=== PATIENT | female | born 1965 | race Caucasian/White ===

== ENCOUNTER 2017-08-29 23:42 | Emergency (ER) | payer SELFPAY ==
[~2017-08-29] VITALS: Ht 167.6 cm; Wt 85.0 kg
[2017-08-29 23:47] VITALS: BP 202/95; PULSE 79; RESP 20; TEMP 97.8; O2SAT 100
[2017-08-30] MEDS ORDERED: METO1TAB42 PO (00:12)
[2017-08-30] MEDS ORDERED: LISI40TA PO (00:12)
[2017-08-30] MEDS ORDERED: HYDR12.56 PO (00:12)
[2017-08-30] MEDS ORDERED: ATOR10TA15 PO (00:12)
--- NOTE | 2017-08-30 00:54 | PD ---
HPI Chief Complaint: Injury Time Seen by Provider: 00:50 Travel History International Travel<30 days: No Contact w/Intl Traveler<30days: No Traveled to known affect area: No History of Present Illness HPI The patient is a 51-year-old female that 2 weeks ago hurt her right fourth and fifth toes when she stubbed them on a stove. The toe, particularly the fifth toe remains painful and blue. The fourth toe appears to be doing much better. She came in tonight because of the collar and persistent pain in that fifth toe. The patient smokes one half packs a day. PFSH Past Medical History Cardiovascular Problems: Yes (SVT) High Cholesterol: Yes Patient Takes Glucophage: No Hypertension: Yes ?: Not LMP: 08/10/2017 Past Surgical History Appendectomy: Yes Social History Alcohol Use: Yes (Occasional) Tobacco Use: Yes (1.5 ppd) Substance Use: No Allergies-Medications (Allergen,Severity, Reaction): Coded Allergies: acetaminophen (Verified Allergy, Unknown, Respiratory, 08/30/17) hydrocodone (Verified Allergy, Unknown, Respiratory, 08/30/17) levofloxacin (Verified Allergy, Unknown, SVT-Cardiac symptoms, 08/30/17) moxifloxacin (Verified Allergy, Unknown, SVT-Cardiac symptoms, 08/30/17) Reported Meds & Prescriptions Reported Meds & Active Scripts Active Reported Hydrochlorothiazide 12.5 Mg Tab 12.5 Mg PO DAILY Atorvastatin (Atorvastatin Calcium) 10 Mg Tab 10 Mg PO HS Lisinopril 40 Mg Tab 40 Mg PO DAILY Metoprolol Succinate ER 24 HR (Metoprolol Succinate) 25 Mg Tab 25 Mg PO DAILY Review of Systems Except as stated in HPI: all other systems reviewed are Neg Physical Exam Narrative GENERAL: Well-nourished, well-developed patient in slight apparent distress with her right fifth toe discomfort. Her vital signs show blood pressure 202/ 95 but are otherwise normal. SKIN: Focused skin assessment warm/dry. HEAD: Normocephalic. EYES: No scleral icterus. No injection or drainage. NECK: Supple, trachea midline. No JVD or lymphadenopathy. CARDIOVASCULAR: Regular rate and rhythm without murmurs, gallops, or rubs. RESPIRATORY: Breath sounds equal bilaterally. No accessory muscle use. GASTROINTESTINAL: Abdomen soft, non-tender, nondistended. MUSCULOSKELETAL: No cyanosis, or edema. The right fifth toe is blue without any obvious deformity. Good capillary refill and pinprick is present distally on the right fifth toe. BACK: Nontender without obvious deformity. No CVA tenderness. Data Data Last Documented VS Vital Signs Date Time Temp Pulse Resp B/P (MAP) Pulse Ox O2 Delivery O2 Flow Rate FiO2 08/30/17 00:02 20 100 Room Air 08/29/17 23:47 97.8 79 202/95 (130) Orders Orders Toe (Min 2vws) (08/30/17 ) MDM Medical Decision Making Medical Screen Exam Complete: Yes Emergency Medical Condition: Yes Medical Record Reviewed: Yes Interpretation(s) X-rays show no fracture dislocation of either the fourth or fifth digit of the right foot. Differential Diagnosis Fractured toe, dislocation toe, tight fitting shoe, Raynaud's syndrome, gangrene Narrative Course It is possible that smoking has caused some vascular problems in her little toe. He should discontinue smoking and follow-up with a barometers calibrator. Try soaking your right foot in warm water to see if this helps. There is no evidence of gangrene at this time. This is likely Raynaud's. Diagnosis Primary Impression: Raynauds disease Additional Instructions: Try soaking her foot in warm water to see if this helps. Discontinue smoking as smoking can cause problems with small-vessels that supplied your toe. Follow -up with a barometers calibrator as soon as possible. Med/Other Pt SpecificInfo: No Change to Meds Disposition: 01 DISCHARGE HOME Condition: Stable Marty Knight MD Aug 30, 2017 00:54
--- NOTE | 2017-08-30 01:02 | RADRPT ---
EXAM DATE/TIME: 08/30/2017 00:52 [facility] COMPARISON: No previous studies available for comparison. INDICATIONS : Right foot, fifth digit pain. MEDICAL HISTORY : None. SURGICAL HISTORY : None. ENCOUNTER: Initial ACUITY: 1 day PAIN SCORE: 9/10 LOCATION: Right foot FINDINGS: Examination of the fifth digit of the right foot demonstrates no evidence of fracture or dislocation. No radiopaque foreign bodies are seen. The soft tissues are intact. CONCLUSION: No acute fracture or joint dislocation. Rip Shaw MD on August 30, 2017 at 1:00 Board Certified Radiologist. This report was verified electronically.
[2017-08-30 01:20] VITALS: BP 176/83
[2017-08-30] MEDS ORDERED: IBUP-232 PO (01:29)
[2017-08-30] MEDS ORDERED: IBUPROFEN 600 MG TAB PO ONE (01:30)
== END 2017-08-30 01:34 | disposition home or self-care (01) ==
LOC: PHED 23:42
DX: I73.00 Raynaud's syndrome without gangrene (principal); F17.210 Nicotine dependence, cigarettes, uncomplicated; I47.1 Supraventricular tachycardia; E78.00 Pure hypercholesterolemia, unspecified; I10 Essential (primary) hypertension
CPT/HCPCS: 73660; 99282